=== PATIENT | male | born 1985 | race Caucasian/White ===

== ENCOUNTER → 2016-12-04 | Outpatient (CLI) | payer OTHER ==
[2016-12-04 11:20] LABS: DAYS OF ABSTINENCE 4; METHOD OF COLLECTION MASTURBATION; SEMEN COLOR YELLOW-GRAY (GRY/GRYWHTE); SEMEN TIME OF COLLECTION 925; TYPE OF SPECIMEN CONTAINER STERILE CUP
[2016-12-04 15:50] LABS: SPERM VIABILITY STAIN NOT INDICATED % (>58%)
[2016-12-04 15:53] LABS: SPERM MORPHOLOGY 18% NORMAL
== END | disposition home or self-care (01) ==
LOC: C.LAB 09:55
PROVIDERS: ATTEND Obstetrics & Gynecology
DX: Z31.41 Encounter for fertility testing (principal)